=== PATIENT | male | born 1990 | race Caucasian/White ===

== ENCOUNTER 2021-06-21 01:59 | Emergency (ER) | payer OTHER ==
[~2021-06-21] VITALS: Ht 188 cm; Wt 97.5 kg
--- NOTE | 2021-06-21 02:15 | NUR ---
PATIENT BIB [employer] C/O NEW LOST OF TASTE. PATIENT IS A/O X 4, RR EVEN AND UNLABORED, NO SOB NOTED. PATIENT CONNECTED TO HEEL SLUGGER AND POX.
--- NOTE | 2021-06-21 02:21 | NUR ---
COVID SWAB COLLECTED AND SENT TO LAB
--- NOTE | 2021-06-21 02:59 | NUR ---
Patient discharged to home in stable condition. Written and verbal after care instructions given. Patient verbalizes understanding of instruction.
[2021-06-21 03:00] VITALS: BP 138/77
== END 2021-06-21 03:00 ==
LOC: ER 02:05
DX: R43.9 Unspecified disturbances of smell and taste (principal); Z20.822 Contact with and (suspected) exposure to COVID-19; R03.0 Elevated blood-pressure reading, without diagnosis of hypertension
CPT/HCPCS: 87426; 99283; C9803